=== PATIENT | female | born 1950 | race Caucasian/White ===

== ENCOUNTER 2017-07-02 20:42 | Inpatient (IN) | payer BC ==
[~2017-07-02] VITALS: Ht 170.2 cm; Wt 118.1 kg
--- NOTE | ~2017-07-02 | PR ---
[place], [place] PROGRESS NOTE NAME: [facility]YES [id number] UNIT #: [id number] ROOM: 412 DOCTOR: KENNEDY GUILLEN MD BIRTHDATE: [birth year] DOS: 07/04/2017 CARDIOLOGY PROGRESS NOTE SUBJECTIVE: The patient was seen in the Cardiology Department prior to her stress test this morning. She states that she has felt well overnight and has not had any further chest heaviness in the hospital. She is a 66-year-old woman with a history of hypertension, obesity and prediabetes as well as a strong family history for vascular disease. Lately, she has had increased fatigue, dyspnea on exertion and exertional chest heaviness, prompting hospitalization and the current evaluation. PHYSICAL EXAMINATION: VITAL SIGNS: Today her pulse is 70 and regular, blood pressure 145/81. She is afebrile. NECK: Supple. She has no jugular distention. Carotids are full. LUNGS: Respirations are unlabored. Her chest is clear to auscultation and percussion. HEART: Has a regular rhythm with an S4 gallop, but no S3. ABDOMEN: Obese, but otherwise benign. EXTREMITIES: Showed no edema. IMPRESSION: 1. Precordial chest pain in a patient with multiple risk factors for coronary artery disease. 2. Essential hypertension. 3. Prediabetes. 4. Obesity. 5. History of deep venous thromboses, however, the patient does have a normal D-dimer this admission. PLAN: We will proceed with an exercise stress test today. Further recommendations will depend upon the results of the stress test. Certainly, she should continue to emphasize risk factor modification in her care. [place], [place] PROGRESS NOTE NAME: MISTY REYES UNIT #: [id number] ROOM: 412 DOCTOR: KENNEDY GUILLEN MD BIRTHDATE: [birth year] KENNEDY GUILLEN MD CM:PNTRANS [id number] KENNEDY GUILLEN MD 07/05/17 1047 interface
--- NOTE | ~2017-07-02 | CON ---
[place], [place] REPORT OF CONSULTATION NAME: MISTY REYES UNIT #: [id number] ROOM: 412 DOCTOR: KENNEDY GUILLEN MD BIRTHDATE: [birth year] DOS: 07/03/2017 REASON FOR CONSULTATION: Chest pain. HISTORY OF PRESENT ILLNESS: The patient is a 66-year-old woman who has no previously documented history of coronary artery disease. She is being treated for hypertension and does have obesity and prediabetes. She also has a strong family history of vascular disease. She was in her normal state of health until the last few weeks. She states that she has had much more fatigue. She has noticed dyspnea on exertion and a heavy sensation in her chest that comes and goes. She does not relate it to exertion particularly, but states that she is fairly sedentary. Yesterday, she had much more chest heaviness and therefore a friend urged her to come to the Emergency Room. Her symptoms have improved. She did not have any acute EKG changes or elevation in troponin and her D-dimer is normal. PAST MEDICAL HISTORY: Includes 1. Obesity. 2. Bilateral knee replacements. 3. Recurrent pneumonias in the past. 4. History of deep venous thromboses and pulmonary emboli. The first episode occurred during a tubal ligation 41 years ago. She has had DVT since then. She is not, however, on long-term anticoagulation. 5. Hypertension. 6. Prediabetes with hemoglobin A1c 6.2. 7. No history of cigarette abuse, myocardial infarction or stroke. 8. Multiple family members with heart disease in middle age. REVIEW OF SYSTEMS: The patient denies diplopia or loss of vision. She denies focal weakness. She denies fevers, chills, sweats or recent weight change. She has had chest discomfort as noted above. She has not had focal weakness. She denies nausea or vomiting. She denies hemoptysis or hematemesis. She has been more short of breath lately, but denies cough. She denies blood in her stools or urine. She has had occasional leg swelling. She denies any skin rashes. She denies claudications. The remainder of the review of systems is negative except as noted above. FAMILY HISTORY: Her father at age 69 from a heart attack. Multiple members of his family have had hypertension. Her mother of complications of hypertension with renal failure and heart failure at age 69. Her family has many members with hypertension. Her brother suddenly at age 55 of an apparent heart attack. Her sister of kidney cancer. She has another sister with hypertension. SOCIAL HISTORY: The patient , lives with her . She has never smoked. She works doing retail work and quilting. CURRENT MEDICATIONS: Prior to admission included alprazolam 0.25 mg daily for anxiety, amlodipine 5 mg daily, atorvastatin 40 mg daily, biotin 2500 mcg 2 [place], [place] REPORT OF CONSULTATION NAME: MISTY REYES UNIT #: [id number] ROOM: 412 DOCTOR: KENNEDY GUILLEN MD BIRTHDATE: [birth year] capsules daily and valsartan 160 mg daily. ALLERGIES: She has no known drug allergies. PHYSICAL EXAMINATION: GENERAL: She is an overweight white female who is awake, alert and oriented. VITAL SIGNS: Pulse is 63 and regular, blood pressure is 144/81. She is afebrile. She weighs 118.1 kilograms with body mass index of 40.8. HEENT: Normocephalic and atraumatic. Extraocular muscles are intact. Sclerae are clear. Pupils equal, round and react to light. The oral mucosa is moist. Tongue is midline. NECK: Supple. She has no jugular distention. Carotids are full without bruits. She has no neck or supraclavicular masses. No thyromegaly. LUNGS: Respirations are unlabored. Her chest is clear to auscultation and percussion. She has no presacral edema or chest wall tenderness. HEART: Has a regular rhythm. She has a fourth heart sound, but no third heart sound or murmur. The PMI is not displaced. There is no precordial heave, lift or thrill. ABDOMEN: Soft and normally active without masses, organomegaly or bruits. There is no Lomeli sign. There is no tenderness. EXTREMITIES: Showed no clubbing, cyanosis or edema. There were no palpable cords or Homans sign. Pedal pulses were easily palpated in the feet. LABORATORY DATA: I reviewed her electrocardiogram that showed sinus rhythm and were normal tracings. IMPRESSION: 1. Precordial chest pain. The patient has multiple risk factors including hypertension, prediabetes, hyperlipidemia and obesity along with a family history of heart disease in middle age, but she does not show any objective findings to suggest an acute coronary syndrome. Nonetheless, her symptoms are quite suggestive of a cardiac etiology for her pains. 2. Essential hypertension. 3. Prediabetes. 4. Obesity. 5. History of deep venous thromboses. The patient has a normal D-dimer on the current admission. PLAN: I agree with the patient's admission to evaluate for an acute coronary syndrome. Unfortunately, the patient has had breakfast this morning. We will plan on an exercise/pharmacologic myocardial perfusion study within the next 24 hours. In the interim, we will continue to monitor her and check an echocardiogram for LV function. If her stress test is normal, then she will need to be evaluated for other causes of chest pain such as reflux, cholecystitis, etc. For now; however, I think we need to consider heart disease as very likely cause. Further evaluation and care will depend upon the results of her stress test and echo. I thank the hospitalist physicians for asking our advice regarding her care. [place], [place] REPORT OF CONSULTATION NAME: MISTY REYES UNIT #: [id number] ROOM: 412 DOCTOR: KENNEDY GUILLEN MD BIRTHDATE: [birth year] KENNEDY GUILLEN MD CM:CONSTR:REPORT OF CONSULTATION [id number] 07/03/17 1115 interface
[2017-07-02 20:50] VITALS: BP 174/100
[2017-07-02 21:12] LABS: BASO % 0.4 % (0.0-1.0); EOS # 0.2 10*3/uL (0.0-0.4); HEMATOCRIT 41.3 % (37.0-47.0); HEMOGLOBIN 13.6 g/dl (12.0-16.0); LYMPH % 22.2 % (27.0-41.0); MEAN CELL VOLUME 89.8 fl (81.0-99.0); MEAN CORPUSCULAR HGB 29.6 pg (27.0-31.0); MEAN CORPUSCULAR HGB CONC 32.9 g/dl (33.0-37.0); MEAN PLATELET VOLUME 10.7 fl (9.6-12.3); MONO # 0.8 10*3/uL (0.1-1.0); MONO % 9.2 % (3.0-9.0); NEUT # 5.9 10*3/uL (2.3-7.9); NEUT % 65.9 % (47.0-73.0); PLATELET COUNT AUTOMATED 180 10*3/uL (130-400); RED CELL DISTRI WIDTH 13.9 % (0-14.5); WHITE BLOOD COUNT 8.9 10*3/uL (4.8-10.8)
[2017-07-02 21:24] LABS: ACT PARTIAL THROMBO TIME 23.2 SECONDS (20.8-31.5); INTERNATIONAL NORM RATIO 0.9 (2.0-3.5)
[2017-07-02 21:28] LABS: ALBUMIN 3.6 gm/dl (3.1-4.5); ALKALINE PHOSPHATASE 105 U/L (45-117); BUN 22 mg/dl (7-24); CHLORIDE 107 mmol/L (98-107); CREATININE 0.96 mg/dL (0.55-1.02); POTASSIUM 4.1 mmol/L (3.5-5.1); SGOT/AST 17 IU/L (3-35); SGPT/ALT 28 U/L (12-78); SODIUM 143 mmol/L (136-145); TOTAL PROTEIN 7.2 gm/dL (6.4-8.2)
[2017-07-02 21:32] LABS: TROPONIN I < 0.015 ng/ml (<0.045)
[2017-07-02 21:54] VITALS: BP 155/75
[2017-07-02 23:34] VITALS: BP 142/89
--- NOTE | 2017-07-02 23:34 | NUR ---
A 66, admitted to , under the services of AISHWARYA Culver DO with a diagnosis of CHEST PAIN WITH MODERATE RISK FOR CARDIAC ETIOLOGY. Chief complaint is PT COMPLAINS OF CEST PAIN AND DESCRIBED "AN ELEPHANT SITTING ON MY CHEST.". Patient arrived via ambulance from ER. Monitor applied. Initial assessment completed. Vital signs taken and recorded. AISHWARYA CULVER DO notified of admission to the unit. Orders received. See assessment for past medical history, medications and allergies. Patient and/or family oriented to unit. [facility] visitation policy reviewed. Clothing/patient valuable form completed. XAVIER KOENIG
[2017-07-02] MEDS ORDERED: NORVASC5 MG PO (23:48)
[2017-07-02] MEDS ORDERED: DIOVAN160 M2 PO (23:49)
[2017-07-02] MEDS ORDERED: LIPITOR40 MG PO (23:49)
[2017-07-02] MEDS ORDERED: HARD NAILS2500 MCG PO (23:50)
[2017-07-02] MEDS ORDERED: XANAX0.25 MG PO (23:51)
--- NOTE | 2017-07-02 23:54 | NUR ---
NOTIFIED OF PATIENT'S ARRIVAL ON FLOOR. STATES HE WILL PUT NEW ORDERS IN SHORTLY.
[2017-07-03 00:34] LABS: BILIRUBIN NEGATIVE (NEGATIVE); BLOOD NEGATIVE (NEGATIVE); CLARITY CLEAR (CLEAR); COLOR YELLOW (YELLOW); GLUCOSE NEGATIVE (NEGATIVE); KETONE NEGATIVE (NEGATIVE); LEUKO ESTERASE NEGATIVE (NEGATIVE); NITRITE NEGATIVE (NEGATIVE); SPECIFIC GRAVITY >= 1.030 (1.005-1.030); UROBILINOGEN 0.2 E.U./dl (0.2-1.0)
--- NOTE | 2017-07-03 02:57 | NUR ---
24HR CHART CHECK COMPLETED.
--- NOTE | 2017-07-03 03:16 | NUR ---
PT N BED, RESTING WITH EYES CLOSED. RESPIRATIONS EASY. CALL LIGHT WITHIN REACH. PT IN NO APPARENT DISTREE. WILL CONTINUE TO MONITOR.
--- NOTE | 2017-07-03 07:00 | NUR ---
PT IN BED, EYES CLOSED. RESPIRATIONS EASY, UNLABORED. VITAL SIGNS STABLE. CALL LIGHT IN REACH.
[2017-07-03 07:23] LABS: BASO # 0.1 10*3/uL (0.0-0.1); BASO % 0.7 % (0.0-1.0); EOS # 0.2 10*3/uL (0.0-0.4); EOS % 3.4 % (1.0-4.0); HEMATOCRIT 39.3 % (37.0-47.0); LYMPH # 1.7 10*3/uL (1.3-4.4); LYMPH % 24.6 % (27.0-41.0); MEAN CELL VOLUME 91.4 fl (81.0-99.0); MEAN CORPUSCULAR HGB 30.2 pg (27.0-31.0); MEAN CORPUSCULAR HGB CONC 33.1 g/dl (33.0-37.0); MEAN PLATELET VOLUME 10.8 fl (9.6-12.3); MONO # 0.7 10*3/uL (0.1-1.0); MONO % 10.3 % (3.0-9.0); NEUT # 4.1 10*3/uL (2.3-7.9); NEUT % 60.7 % (47.0-73.0); PLATELET COUNT AUTOMATED 164 10*3/uL (130-400); WHITE BLOOD COUNT 6.7 10*3/uL (4.8-10.8)
[2017-07-03 07:53] LABS: BUN 18 mg/dl (7-24); CHLORIDE 108 mmol/L (98-107); CHOLESTEROL 150 mg/dL (<200); CREATININE 0.86 mg/dL (0.55-1.02); HDL CHOLESTEROL 41 mg/dl (40-60); LDL CHOLESTEROL 83 mg/dL (9-159); POTASSIUM 3.9 mmol/L (3.5-5.1); SODIUM 141 mmol/L (136-145); TRIGLYCERIDES 128 mg/dl (<150); VLDL CHOLESTEROL 26 mg/dL (6-40)
[2017-07-03 08:00] VITALS: BP 144/81
[2017-07-03 08:03] LABS: ACT PARTIAL THROMBO TIME 22.9 SECONDS (20.8-31.5)
[2017-07-03 08:46] LABS: VITAMIN D, 25-HYDROXY 14.5 ng/mL (30-100)
--- NOTE | 2017-07-03 09:00 | NUR ---
Cart Pusher in to talk to patient. Patient states lives at home with . There are few steps in the home. Physician: shant lynch Pharmacy: [facility] health services: none Patient's level of ADLs: INDEPENDENT Patient has working utilities: all working DME: none Follow-up physician's appointment after d/c: will be made by hosptialist nurse director upon discharge Does patient want to access PORTAL?: no Discharge plan discussed with patient, patient lives at home with , she is independent in adls and ambulation, works, drives, patient states she will be going back home and denies any home needs. BENSON ORTA
[2017-07-03 12:00] VITALS: BP 138/50
[2017-07-03 16:00] VITALS: BP 135/67
[2017-07-03 20:00] VITALS: BP 153/69
--- NOTE | 2017-07-03 20:00 | NUR ---
ASSUMED CARE OF PATIENT. ASSESSMENT COMPLETE. RESTING IN BED. NO COMPLAINTS. CALL LIGHT IN REACH. WILL CONTINUE TO MONITOR.
[2017-07-04] VITALS: BP 136/72
--- NOTE | 2017-07-04 02:00 | NUR ---
SLEEPING. RESP EASY AND NONLABORED ON ROOM AIR. NO DISTRESS NOTED. CM INTACT. CALL LIGHT IN REACH. WILL CONTINUE TO MONITOR.
[2017-07-04 08:00] VITALS: BP 145/81
--- NOTE | 2017-07-04 08:44 | NUR ---
PT OFF FLOOR FOR STRESS TEST
--- NOTE | 2017-07-04 09:00 | NUR ---
case management attempted to visit with patient, patient was out of room for testing
--- NOTE | 2017-07-04 09:45 | NUR ---
INFORMED CONSENT OBTAINED FOR EXERCISE CARDIOLITE STRESS TEST WITH DR. GUILLEN. RESTING EKG SINUS MARY WITH A RESTING HR OF 59 WITH BP OF 138/86 AND HR OF 73 WITH BP OF 118/90 IN STANDING POSITION. PT COMPLETED 5:20 OF A SASHA PROTOCOL WITH COMPLETION OF 2:20 OF STAGE II AT 2.5 MPH AND 12% GRADE. REACHED A PEAK HR OF 149 WHICH IS 96% OF PREDICTED MAX WITH A PEAK BP OF 200/84. TEST TERMINATED BECAUSE OF FATIGUE. HAD NO EKG CHANGES. DID C/O "CHEST TIGHTNESS" IN CENTRAL CHEST IN STAGE II AT 2-3 ON PAIN SCALE. DISCOMFORT LESS IN RECOVERY AND RELIEVED AT 3:00 RECOVERY. HAS AN AVERAGE EXERCISE TOLERANCE. HAS HYPERTENSIVE RESPONSE TO EXERCISE. LAST RECOVERY HR OF 89 WITH BP OF 190/82. AWAITING SCANNING IN STABLE CONDITION.
[2017-07-04 12:00] VITALS: BP 127/65
[2017-07-04] MEDS ORDERED: Vitamin D PO (15:45)
[2017-07-04 16:00] VITALS: BP 106/50
[2017-07-04] MEDS ORDERED: LOPRESSOR25 MG PO (16:11)
--- NOTE | 2017-07-04 16:34 | NUR ---
Discharge instructions reviewed with patient/family. Patient receptive and verbalizes understanding. Follow-up care arranged. Written instructions given to patient/family. YUKO NARANJO
== END 2017-07-04 16:34 | disposition home or self-care (01) | DRG 313 ==
LOC: ED 20:42 → EDSEX 20:46 → ED 20:46 → 4E 22:50 → EDHOLD 22:50 → 4E 23:14
PROVIDERS: Emergency Medicine Emergency Medical Services; Internal Medicine; ADMIT Emergency Medicine
PROC: 4A02XM4 Measurement of Cardiac Total Activity, External Approach (ICD-10-PCS; principal; 2017-07-04)
DX: R07.9 Chest pain, unspecified (principal); E66.01 Morbid (severe) obesity due to excess calories; K50.90 Crohn's disease, unspecified, without complications; Z68.41 Body mass index [BMI] 40.0-44.9, adult; E53.8 Deficiency of other specified B group vitamins; I10 Essential (primary) hypertension; E55.9 Vitamin D deficiency, unspecified; E78.00 Pure hypercholesterolemia, unspecified; R73.03 Prediabetes; F41.9 Anxiety disorder, unspecified; Z96.653 Presence of artificial knee joint, bilateral; M06.9 Rheumatoid arthritis, unspecified; Z82.49 Family history of ischemic heart disease and other diseases of the circulatory system; Z84.1 Family history of disorders of kidney and ureter; Z98.49 Cataract extraction status, unspecified eye; Z90.710 Acquired absence of both cervix and uterus; Z79.899 Other long term (current) drug therapy; Z86.718 Personal history of other venous thrombosis and embolism